=== PATIENT | female | born 1975 | race Caucasian/White ===

== ENCOUNTER 2016-10-04 06:01 | Observation (INO) | payer BC, OTHER ==
[2016-09-28 17:21] LABS: WBC (NOT ORDERED) (RFLEX) 0 (0-5)
[2016-09-28 17:31] LABS: BASOPHILS 0.3 %; BASOPHILS ABSOLUTE 0.02 10/3/uL (0.0-0.16); EOSINOPHILS 1.4 %; EOSINOPHILS ABSOLUTE 0.11 10/3/uL (0.0-0.53); HEMATOCRIT 36.7 % (36.0-48.0); HEMOGLOBIN 11.8 g/dL (12.0-16.0); IMMATURE GRANULOCYTES 0.3 %; IMMATURE GRANULOCYTES ABSOLUTE 0.02 10/3/uL (0.0-0.11); LYMPHOCYTES 28.8 %; LYMPHOCYTES ABSOLUTE 2.24 10/3/uL (0.67-4.30); MANUAL DIFF NO %; MEAN CORPUS HGB CONC 32.2 g/dL (32.0-36.0); MEAN CORPUSCULAR HEMOGLOB 30.3 pg (26.0-34.0); MEAN CORPUSCULAR VOLUME 94.1 fL (80-100); MEAN PLATELET VOLUME 8.6 fL (9.2-13.0); MONOCYTES 4.5 %; MONOCYTES ABSOLUTE 0.35 10/3/uL (0.21-1.20); NEUTROPHILS 64.7 %; NEUTROPHILS ABSOLUTE 5.04 10/3/uL (2.02-8.40); PLATELET COUNT 285 10/3/uL (150-400); RBC DISTRIBUTION WIDTH 15.6 % (12.0-16.0); WHITE BLOOD CELLS 7.8 10/3/uL (4.5-10.5)
[2016-09-28 17:49] LABS: INTERNATIONAL NORMAL RATI 1.1 UNITS (-)
[2016-09-28 17:51] LABS: PROTIME (NOT ORD) 13.6 SEC (12.0-14.5)
[2016-09-28 17:55] LABS: ASCORBIC ACID (UR NOT ORDER) 40 (NEG); BILIRUBIN, URINE NEGATIVE (NEG); KETONE, URINE NEGATIVE (NEG); LEUKOCYTE ESTERASE(NOT OR NEG (NEG)
[2016-09-28 17:56] LABS: BUN (BLOOD UREA NITROGEN) 27 MG/DL (6-23); CALCIUM, SERUM 9.2 MG/DL (8.5-10.4); CHLORIDE, SERUM 106 MMOL/L (96-112); CO2 (CARBON DIOXIDE) 27 MMOL/L (24-34); CREATININE 0.72 MG/DL (0.55-1.02); GFR AFRICAN AMERICAN 121 ML/MIN (>=60); GFR NON AFRICAN AMERICAN 105 ML/MIN (>=60); GLUCOSE, SERUM 94 MG/DL (60-99); POTASSIUM, SERUM 4.4 MMOL/L (3.5-5.3); SODIUM, SERUM 143 MMOL/L (135-148)
--- NOTE | ~2016-10-04 | PREOPHP ---
PreOp History and Physical [facility] [address] [place]. [address] NAME: NAMITA BAZZI : 77 STATUS : PRE IN PAT#: [id number] AGE: 41 ADM/REG DATE : MR#: [id number] REPORT SERV DATE: 10/02/16 DICTATED BY: JOHN KAM DATE: 09/28/16 REPORT STATUS : Draft TRANSCRIBED BY: MODMio DATE: 09/28/16 DATE OF SERVICE: 10/04/2016. CHIEF COMPLAINT: "I have this wound." HISTORY OF PRESENT ILLNESS: This is a 41-year-old female with history of IV drug use, who presented to [place] from [place] with fevers, rigors, and pain. She had a rash over her lower extremities and arms. She had cultures at [facility] that showed MRSA in 2/2 cultures. Her transesophageal echocardiogram at that time, showed moderate to severe tricuspid valve regurgitation as well as vegetation on the anterior leaflet and anulus. We were consulted to see, and she underwent urgent tricuspid valve replacement by Dr. Rizzo. She also had left lung partial decortication and pneumonectomy for a septic emboli to the lung. She at the time of her surgery, had some ulcers over her lower extremities and these have nearly healed. She, since discharge from the hospital, has had some persistent drainage from the distal sternal scar and there is a small tract about 1.2 cm in greatest depth that intermittently abscesses and then clears up. She has been treating this with cleansing and the use of mupirocin ointment 3 times a day. She has been receiving her IV antibiotics at the infusion center at [facility] and I believe has finished the course. She returns to our office today for a scheduled appointment to re-evaluate this small distal sternal punctate wound. PRIOR MEDICAL HISTORY: Significant for hep C, anxiety, prior history of IV drug use. PRIOR SURGICAL HISTORY: Significant for her sternotomy and tricuspid valve replacement on 08/04/2016. She had cholecystectomy at [facility] in June of last year. ALLERGIES: NONE KNOWN. MEDICATIONS: Include metoprolol, Klonopin, and OxyContin extended release. FAMILY HISTORY: Noncontributory. SOCIAL HISTORY: She is unmarried, has a 14-year-old son who resides with his father. She has refrained from smoking cigarettes and she rarely drinks alcohol. She has been employed as a sheltered workshop worker. REVIEW OF SYSTEMS: GENERAL: Positive for fatigue and weakness, lower extremity edema that has resolved, ulcers over her lower extremities that are healing, and drainage from the sternal incision. She denies fevers, chills, or sweats. She denies any weight loss, although she has been eating well and is slow to regain her weight. PHYSICAL EXAMINATION: GENERAL: She is a pleasant white female, in no acute distress. Her height is 170.18 cm. Her weight is 130 pounds. VITAL SIGNS: Today, blood pressure is 101/66, her heart rate is 97 and saturation of 100%. HEENT: Normocephalic, atraumatic. Pupils equal, round, reactive to light and accommodation. PreOp History and Physical [address] [address] NAME: NAMITA BAZZI : 77 STATUS : PRE IN [facility]#: [id number] AGE: 41 ADM/REG DATE : MR#: [id number] REPORT SERV DATE: 10/02/16 DICTATED BY: JOHN KAM DATE: 09/28/16 REPORT STATUS : Draft TRANSCRIBED BY: CLEMENTINA DATE: 09/28/16 Sclerae clear, conjunctivae pink. Oral buccal mucosa pink and without lesions or masses. Mallampati class 1 airway. NECK: Supple. No restricted range of motion. No carotid bruits. No jugular venous distention. CHEST: She has a healed sternotomy wound with distal punctate wound that tunnels cephalocaudal at approximately 1.2 cm. It bleeds easily. LUNGS: Clear. HEART: Has a regular rate and rhythm, without murmur or rub. She has palpable symmetric central and peripheral pulses. No clubbing or cyanosis. No lower extremity edema. ABDOMEN: Soft, obese, nontender with normoactive bowel sounds. No hepatosplenomegaly. /RECTAL: Declined. MUSCULOSKELETAL: No kyphoscoliosis. No asymmetry. NEURO/PSYCH: She is pleasant and appropriate, with no evidence of anxiety or depression. No focal deficits. SKIN, HAIR, AND NAILS: Significant for healing ulcerations over both ankles. She has resolution of her rash and purpura, which she had at the time of surgery. IMPRESSION: Nonhealing distal sternal wound. There was suspicion for retained suture, but due to inadequate visualization in the office with local anesthetic and small wound, it is felt that she would best be served by bringing her in for same-day procedure at [facility]. We will make arrangements for this on Sunday, next week. We talked with her today about this minor surgery, and risks and benefits. She indicates her understanding and is willing to proceed. We scheduled this for Sunday, next week. In the interim, we will obtain pre-admission testing. MSL/MODL John Kam N.P. / [id number] CC: Esa Jimenez MD
--- NOTE | ~2016-10-04 | OP ---
Record Of Operation [facility] [address] [place]. [address] NAME: NAMITA BAZZI : 77 STATUS : DIS Erica PAT#: [id number] AGE: 41 ADM/REG DATE : 10/04/16 MR#: [id number] REPORT SERV DATE: 10/28/16 DICTATED BY: DELORES RIZZO DATE: 10/28/16 REPORT STATUS : Draft TRANSCRIBED BY: CLEMENTINA DATE: 10/28/16 DATE OF PROCEDURE: 10/04/2016 PREOPERATIVE DIAGNOSES: 1. Sternal wound separation. 2. 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 3. Methicillin-resistant Staphylococcus aureus. 4. History of IV drug abuse. POSTOPERATIVE DIAGNOSES: 1. Sternal wound separation. 2. 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 3. Methicillin-resistant Staphylococcus aureus. 4. History of IV drug abuse. PROCEDURE PERFORMED: Sternal wound debridement and closure. SURGEON: Delores Rizzo MD HAND SHOES SEWER: Bayron Powers. ANESTHESIA: General. INDICATIONS: Ms. Bazzi underwent tricuspid valve replacement for tricuspid valve endocarditis several weeks ago. She was septic with pulmonary abscesses and mycotic emboli at that time. She did well postoperatively, but developed a small sternal wound separation at the inferior aspect of her sternotomy that did not involve the full length of the sternotomy and only about 5 to 6 cm inferiorly. This has been dressed in the office and is draining clear fluid. It was granulating well, however, there was a tract extending deep that needed to be explored. I felt that this should possibly be closed, and we discussed this possible closure with the patient and her mother, and after discussing the operation, its indication and risks, they wished to proceed. FINDINGS: 1. There was no purulence in the wound. There was a small tract going slightly cranial from the inferior aspect of the sternal incision. This tract up to a single sternal wire distally and this was removed. The wound was then debrided. It was then irrigated and closed. Pathologic specimen includes sternal wire. DESCRIPTION OF PROCEDURE: The patient was brought to the operating suite. General anesthesia was induced. Airway secured with an LMA. Lines secured by Anesthesia. The patient's chest and abdomen prepped with Hibiclens and ChloraPrep and draped with Ioban and sterile sheets. A VAC pack had been removed before prepping. The patient's wound was examined. There was good granulation tissue superficially, and extending deep, there was a single area of tracking, which slightly went cranial up to a single sternal wire. At the most inferior aspect of the sternotomy incision. This wire was divided and removed. We Record Of Operation [facility] [id number] [place]. [address] NAME: NAMITA BAZZI : 77 STATUS : DIS Erica PAT#: [id number] AGE: 41 ADM/REG DATE : 10/04/16 MR#: [id number] REPORT SERV DATE: 10/28/16 DICTATED BY: DELORES RIZZO DATE: 10/28/16 REPORT STATUS : Draft TRANSCRIBED BY: CLEMENTINA DATE: 10/28/16 then debrided the wound and good bleeding was observed. There was no purulence observed. The wound was then irrigated copiously with saline and antibiotic solution. Then, the wound was closed in a simple fashion with deep fascial sutures and large nylon sutures inserted as vertical mattress sutures reapproximated the deep tissue and skin edges without completely closing the skin. A VAC dressing was applied over the top. The patient tolerated the procedure well. There are no complications. Sponge and needle counts correct. DISPOSITION: She was awakened, extubated, and taken to recovery room. LISA/CLEMENTINA Delores Rizzo M.D. / [id number] CC: Esa Jimenez MD
[~2016-10-04 06:01] MED LIST: ALMACONE PO; BISR PR; CIP5 PO; CREON DR 36,001 EACH PO; FESO4 PO; HALF81 PO; IBU800 PO; KLONO2 PO; KLOR-CON M2020 MEQ PO; LOP25 PO; MOBIC15 MG PO; MOMUD PO; NICODERM T; OXYCON10 PO; P20 PO; PCET PO; SANTYL250 MG/GM TOP; T PO; V5 PO; VITC500 PO; ZINC220C PO
[2016-10-05] MEDS ORDERED: K500 PO (09:59)
[2016-10-05] MEDS ORDERED: OXYCOD PO (10:00)
== END 2016-10-05 15:41 | disposition home or self-care (01) ==
LOC: SDC/OF 06:01 → 5NO 10:52
PROVIDERS: Thoracic Surgery (Cardiothoracic Vascular Surgery)
PROC: 0PQ00ZZ Repair Sternum, Open Approach (ICD-10-PCS; principal; 2016-10-04 07:15)
DX: T81.89XD Other complications of procedures, not elsewhere classified, subsequent encounter (principal); F41.9 Anxiety disorder, unspecified; D64.9 Anemia, unspecified; Z90.49 Acquired absence of other specified parts of digestive tract; Z98.890 Other specified postprocedural states; Z87.891 Personal history of nicotine dependence; Z79.899 Other long term (current) drug therapy; Z79.891 Long term (current) use of opiate analgesic; Z88.8 Allergy status to other drugs, medicaments and biological substances
CPT/HCPCS: 36415; 80048; 81001; 84703; 85025; 85610; 86850; 86900; 86901; 86902; 86920; 86922; 87015; 87070; 87075; 87102; 87116; 87205; 93005; 96374; 96375; 96376; A9270-GY; G0378; J0330; J0690; J1170; J2250; J2405; J2795; J3010; J3370